=== PATIENT | female | born 1970 | race Caucasian/White ===

== ENCOUNTER 2018-02-26 06:42 | Day surgery (SDC) | payer OTHER, SELFPAY ==
[2018-02-25 17:02] VITALS: BMI 20.4
[2018-02-26] VITALS (7 sets, daily range): BP systolic 92–100; BP diastolic 62–65; PULSE 63–75; RESP 12–20; TEMP 36.7–36.9; O2SAT 97–100; BMI 20.4
[2018-02-26] MEDS: LACTATED RINGERS 1,000 ML 42 ML IV ×2 (07:11→09:28)
--- NOTE | 2018-02-26 07:14 | PM.PREOP ---
Pre-operative Note Interval Note Pre-op Check: Yes History & Physical Reviewed by Physician and Yes Exam Performed Changes: No
[2018-02-26] MEDS: CEFAZOLIN 2 GM/100 ML FROZ.PIGGY IV (08:00)
--- NOTE | 2018-02-26 08:27 | SUR.OPER ---
Supine on padded OR bed, head on pillow, arms secured on padded arm boards at <90 degrees abduction, legs uncrossed, safety belt at thigh, tape over blanket over right lower leg, left hip bump
--- NOTE | 2018-02-26 08:52 | PM.PROC.1 ---
Procedures Date/Time Date of procedure: 02/26/18 Time of procedure: 07:45 General Procedure description: Ultrasound guided popliteal sciatic nerve block and adductor canal saphenous nerve block for post op pain control after left foot surgery by Dr. Ng. Risk and benefits of procedure discussed with patient. ASA monitoring applied to patient. Oxygen given via nasal cannula. 2 mg Versed and 50 mcg fentanyl given for procedural sedation (meds checked out by [facility] PACU). Skin site was prepped with chlorhexidine and allowed to fully dry. Sterile gloves, mask, hat and probe cover were used to maintain sterility. 2% lidocaine and 30ga needle was used to make a small skin wheal at needle insertion site. Under ultrasound guidance, a 21ga 100mm Pajunk needle was directed near the division of the sciatic nerve into tibial and peroneal nerve in the popliteal fossa (lateral approach). Patient reported no parasthesias. After negative aspiration, 20 mL 0.5% ropivicaine and 10mg dexamethasone were injected around sciatic nerve. In similar fashion, a second injection was performed at the level of mid, medial thigh under ultrasound. Needle tip was directed into adductor canal near femoral artery. After negative aspiration, 10mL 0.5% ropivicaine was injected. Patient tolerated procedure well. Sciatic nerve US picture above, saphenous nerve US picture below
--- NOTE | 2018-02-26 11:15 | SUR.PHASEI ---
1106 aroused spontaneously, denies pain/nausea. States that she doesn't like the 'fan' of the [employer] because of the noise. Manan varam. 1117 Report given.
--- NOTE | 2018-02-26 11:19 | P.OP_ITS ---
Operative Date/Time/Diagnoses Date of procedure: 02/26/18 Time of procedure: 08:00 Pre-op diagnosis: left hallux valgus ICD 10 M20.12 Left metatarsus primus varus Post-op diagnosis: same Procedure & Clinicians Procedure: 1. Bunionectomy, Lapidus with TMT joint fusion, left CPT code 38018 2. Distal soft tissue realignment left great toe, modified Mccauley procedure 3. Fluoroscopic examination a lower extremity, intraoperative cpt code 74052-02 Same procedure as scheduled: Yes Indications: The patient is a 48-year-old female with a history of a left painful bunion. The patient has a history of a bunion surgery approximately 8 years ago which appears to be in a distal procedure with medial eminence resection. Patient has had consistent pain since that time having difficulty exercising, and wearing shoes and would like to proceed with surgery. R The risks and benefits of the procedure have been discussed with the patient even opportunity to ask questions. The risks of surgery include but are not limited to infection, malunion, nonunion, persistence of pain, damage to nerves and blood vessels, posttraumatic arthritis, DVT, PE, cardiopulmonary complications and . The patient expressed a thorough understanding of the risks and benefits of surgery and has elected to proceed. Consent was signed in the office. Patient has a left hallux valgus deformity elevated HVA an MIGUEL she also has a physical examination consistent with 1st tarsometatarsal hypermobility. Given her hypermobility and failed prior procedure she was indicated for revision bunion surgery with a tarsal metatarsal fusion and distal soft tissue procedure. Patient understands the period of protected weight-bearing will be acquired approximately 6-8 weeks of nonweightbearing with the splint and cast and boot treatment. She understands that swelling can persist for up to a year after surgery. Surgeon: Connie Ng Click Yes if Unassisted: Yes Anesthesia Type: General and Peripheral nerve block Operative Notes Findings: Left foot hallux valgus deformity with metatarsus primus varus. Hypermobile 1st TMT joint was encountered on dorsal dissection. This was fixed with 2 cross 4 0 cannulated lag screws from the Arthrex set supplementary 1st 2nd metatarsal solid 3 5 positional screw. Allogeneic bone was used to help facilitate the fusion. The distal 1st webspace incision was made for a lateral release the adductor tendon was released off the proximal phalanx and the metatarsal sesamoid ligament was incised and the lateral capsule was fenestrated in several locations. Adductor tendon was relocated proximally using 2 (2-0 PDS sutures through the 1st metatarsal neck periosteum, adductor tendon, 2nd metatarsal neck periosteum. These were tied at the end of the case. This along with a revision of the medial eminence resection capsulorrhaphy made up the modified Mccauley distal soft tissue realignment. Post reduction fixation the MIGUEL angle had been closed down HVA was improved. No proximal phalanx osteotomy was felt to be indicated based on the correction. The sesamoids were reduced under the metatarsal head. Closure Type: primary Specimen(s): none sent Implants & Drains: Arthrex 4.0 cannulated lag screw x2 Arthritis 3.5 cortical solid screw x 1 Life Net fibers for allogenic bone graft Applied: other Estimated Blood Loss (mL): 0 Blood products transfused: none Tourniquet time (min): 115 Procedure in detail: Patient was seen in the preoperative area. Site and side of surgery were marked. Patient's informed consent was confirmed. The patient had a peripheral block placed for postoperative pain control. This was completed by the anesthesia team. The patient was then brought back to the operating room by the anesthesia team. The patient was positioned supine on the operative table. General anesthesia was administered. All bony prominences were well padded. A well-padded thigh tourniquet was placed. The left lower extremity was prepped and draped in the standard sterile fashion. A formal time- out procedure was performed confirming the patient's side and site of surgery and administration of preoperative antibiotics within 30 min of incision. All were in agreement. An Esmarch bandage was utilized to exsanguinate the lower extremity and the tourniquet was raised to 250 mm of mercury and stayed there for approximately 115 min. Left lower extremity was examined. There was no apparent calf contracture. Attention was then turned to the hallux. The distal 1st webspace incision was made. This was approximately 3 cm. Dissection was carried through the skin and subcutaneous tissue and into the deep tissue to the adductor tendon. The adductor tendon was visualized and sharply dissected from the lateral sesamoid and from the base of the proximal phalanx. Was retracted proximal in the wound and tagged with a 4 0 Vicryl suture. Metatarsal sesamoid joint was then freed up. The lateral capsule was then perforated and stretch. Once satisfied with the correction to 2 2-0 PDS sutures were placed from the mid 1st metatarsal periosteum through the adductor into the 2nd metatarsal periosteum and clamped for timing at the end of the case. Attention was then turned medially. Medial incision was made along the 1st metatarsal head extending proximal. This was taken through the skin and subcutaneous tissue to the medial capsule. Care was taken to protect the dorsomedial nerve. Capsule was opened longitudinally. The metatarsal phalangeal joint was inspected cartilage is intact. There had been a previous medial eminence resection. In order to avoid over resection a power rasp was used just to shave down the residual lateral bump. A small ellipse of redundant capsule was excised. And the releases were checked to make sure that the sesamoids could be reduced under the metatarsal head. Next attention was turned to the 1st tarsometatarsal fusion. Standard dorsal incision at the level of the TMT joint was made after marking using fluoroscopy. This was taken down through the skin and subcutaneous tissue. EHL was protected and retracted laterally protecting the neurovascular bundle. And exposing the tarsometatarsal joint. This was found to be excessively hyper mobile on examination. The joint capsule was then opened. An osteotome was used to prepare the joint and take off the cartilage. Next a small amount of the plantar lateral aspect of the medial cuneiform was also planed down using the osteotome and then the power rasp. The joint was then thoroughly irrigated. Two drill was then used to create a good bleeding surface in the subchondral bone. An osteotome was used to fish scale this area. The demineralized cortical fibers allograft was then rehydrated in saline and placed into the fusion site. First metatarsal was then de rotated Nima is some was utilized to help reduce the MIGUEL and reduce the joint. This was pinned with crossed K-wires. Next a distal to proximal solid 3 5 screw was planned. Bur was used to recess the dorsal cortex of the 1st metatarsal. And the screw trajectory was drilled in lag fashion. A solid screw was initially placed in this location but on final tightening was noted to a malreduce the joint. This was then removed K-wires removed and the joint was reduced and once again cross pinned. Next a additional K-wire from the cannulated screw set was placed from distal to proximal this was overdrilled and countersunk and a 4 0 partially- threaded lag screw was placed in a cannulated fashion. The reduction was noted to hold therefore a similar proximal to distal at cannulated lag screw was also placed in the same fashion. This obtained excellent alignment and fixation. For supplemental fixation and to help hold the MIGUEL reduction a position solid 3 5 screw was placed from the 1st metatarsal to the 2nd metatarsal base. Once this was completed and intraoperative fluoroscopy confirmed adequate hardware placement and joint alignment attention was then returned to the distal soft tissue realignment. Two for a 4 gauze sponges were placed in the 1st webspace to correct the 1st toe alignment and 2-0 PDS suture was utilized to advance and tighten the medial capsule reducing the sesamoids. Next the 2 sutures at the lateral lease, retired from the 1st metatarsal periosteum through the adductor to the 2nd metatarsal periosteum. Final fluoroscopic images were obtained confirming alignment correction of the MIGUEL and reduction of the sesamoids. The tourniquet was released closure was completed with 2 0 PDS, 4 0 Monocryl, 4 O nylon suture. Sterile bulky dressing was placed with Xeroform, gauze, Webril, a bunion dressing and posterior splint. All counts were correct. There were no immediate complications from this procedure. Complications: none Condition: stable Disposition: PACU Plan for aftercare: Patient will be nonweightbearing on the left lower extremity. She will elevate over the next 2 weeks above heart level. She will use 325 mg of aspirin starting on postoperative day 1 for DVT prophylaxis. The patient had a peripheral block placed by the anesthesia team for postoperative pain control. Anticipate approximately 6 weeks of nonweightbearing.
== END 2018-02-26 12:15 | disposition home or self-care (01) ==
PROVIDERS: PCP Family Medicine; Visit Provider Orthopaedic Surgery Foot and Ankle Surgery
PROC: 0QBP0ZZ Excision of Left Metatarsal, Open Approach (ICD-10-PCS; CPT 28292; principal; 2018-02-26 07:45)
DX: M20.12 Hallux valgus (acquired), left foot (principal); G89.18 Other acute postprocedural pain
CPT/HCPCS: 28297; 64450; J0690; J1100; J2250; J2405; J2704; J2795; J3010

== ENCOUNTER → 2018-06-05 16:06 | Outpatient (CLI) | payer OTHER, SELFPAY ==
--- NOTE | 2018-06-05 | DI.MG.S_ITS ---
BILATERAL DIGITAL SCREENING MAMMOGRAM 3D/2D WITH CAD: 06/05/2018 CLINICAL: Routine screening. Comparison is made to exams dated: 04/25/2017 stereotactic biopsy - [facility], 04/16/2017 mammogram, and 03/15/2017 mammogram - [facility]. The tissue of both breasts is extremely dense, which lowers the sensitivity of mammography. Current study was also evaluated with a Computer Aided Detection (CAD) system. There are benign diffuse calcifications in both breasts. No significant masses, calcifications, or other findings are seen in either breast. There has been no significant interval change. IMPRESSION: There is no mammographic evidence of malignancy. A 1 year screening mammogram is recommended. This exam was interpreted at Station ID: [id number]. NOTE: For mammograms, a report in lay terms will be sent to the patient. Approximately 15% of breast malignancies will not be visualized mammographically. In the management of a palpable breast mass, a negative mammogram must not discourage biopsy of a clinically suspicious lesion. Electronically Signed By: Isidoro hartley/margarita:06/10/2018 12:20:38 letter sent: Normal Exam ACR BI-RADS Category 2: Benign Finding(s) 3342F
== END ==
PROVIDERS: PCP Family Medicine; Visit Provider Family Medicine
DX: Z12.31 Encounter for screening mammogram for malignant neoplasm of breast (principal)
CPT/HCPCS: 77063; 77067

== ENCOUNTER 2018-11-15 09:04 | Day surgery (SDC) | payer OTHER, SELFPAY ==
[2018-11-05 15:17] VITALS: BMI 20.2
[2018-11-15] VITALS (13 sets, daily range): BP systolic 91–110; BP diastolic 56–71; PULSE 70–90; RESP 12–22; TEMP 36.6–37.2; O2SAT 96–100; BMI 20.2
[2018-11-15] MEDS: LACTATED RINGERS 1,000 ML 84 ML IV ×2 (09:04→12:54)
[2018-11-15] MEDS: LACTATED RINGERS 1,000 ML 42 ML IV (09:47)
--- NOTE | 2018-11-15 10:08 | PM.HP.1 ---
History of Present Illness Date Patient Seen: 11/15/18 Time Patient Seen: 10:08 Chief complaint: [id number] RIGHT OPEN HERNIA REPAIR W/MESH Narrative: Patient seen and examined Unchanged since recent clinic note Plan for anterior abdominal wall hernia repair Patient History Medical History Insomnia (Chronic) Benign nevus (Acute) Bilateral bunions (Acute) Bunion, left (Acute) Dermatofibroma (Acute) Foot pain, left (Acute) Hallux valgus (acquired), left foot (Acute) Headache, migraine (Acute) Metatarsus primus varus of left foot (Acute) Telangiectasia (Acute) Surgical History (Updated 11/05/18 @ 15:24 by Capri Bass RN) Hx of rhinoplasty (Acute) H/O foot surgery (Acute ~2009) History of bunionectomy (Acute) Status post delivery Social History marital status: number of children: 2 household members: spouse and children lives independently: Yes caregiver/support person: No housing: house occupational status: employed Smoking Status: Never smoker second hand exposure: No alcohol intake: current substance use type: does not use Family & Social History Social History: household members spouse,children lives independently Yes caregiver/support person No Tobacco & Substance use: Smoking Status Never smoker alcohol intake current alcohol intake frequency 0-2 drinks per day Substance Use Type does not use Meds Home Medications Medication Instructions Recorded Confirmed Type ascorbic acid (vitamin C) [Vitamin 250 mg PO DAILY #0 01/01/13 11/15/18 History C] multivitamin 1 cap PO DAILY 11/12/18 11/15/18 History naproxen [Naprosyn] 500 mg PO QMONTH 11/12/18 11/15/18 History zolpidem 5 mg tablet 5 mg PO HS #30 tab 11/12/18 Rx Allergies Allergy/AdvReac Type Severity Reaction Status Date / Time No Known Allergies Allergy Uncoded 11/15/18 09:43 Exam Vital Signs (past 8 hours): - 11/15/18 09:18 Temperature 98.1 F Pulse Rate 79 Respiratory Rate 15 Blood Pressure 105/71 Pulse Oximetry 100 Oxygen Delivery Method Room Air
[2018-11-15] MEDS: CEFAZOLIN 2 GM/100 ML FROZ.PIGGY IV (10:51)
--- NOTE | 2018-11-15 11:24 | SUR.OPER ---
Supine on padded OR bed, head on pillow, arms secured on padded arm boards at <90 degrees abduction, legs uncrossed, safety belt at thigh, tape over blanket over lower legs.
[2018-11-15] MEDS: VANCOMYCIN 1,000 MG VIAL 1000 MG TOP (11:33)
[2018-11-15] MEDS: BUPIVACAINE 0.25% W/ EPI 30 ML VIAL 60 ML INJ (11:33)
--- NOTE | 2018-11-15 14:40 | PM.OP.1 ---
Operative Date/Time/Diagnoses Date of procedure: 11/15/18 Time of procedure: 14:40 Pre-op diagnosis: R anterior abdominal wall hernia Post-op diagnosis: other (Incisional hernia after Pfannenstiel incision from C section ) Procedure & Clinicians Procedure: Open incisional hernia repair -with mesh intralay (placed deep to internal oblique and anterior rectus sheath and superficial to tranversalis and rectus abdominous muscle) Same procedure as scheduled: Yes Surgeon: Marcio Zacarias Click Yes if Unassisted: Yes Anesthesia Type: General Operative Notes Findings: 5x2.5cm incisional hernia at R lateral aspect of Pfannenstiel incision Closure Type: primary Specimen(s): none sent Prosthetic devices, grafts, tissues, transplants, or devices: Mesh: Vitamesh blue lightweight PP macroporus (size inserted into pt 12.5x 7cm) Ref:[id number] Lot: [id number] Estimated Blood Loss (mL): 10 Blood products transfused: none Procedure in detail: 48-year-old woman with remote history of Pfannenstiel incision for presented to clinic with obvious bulge over right inferior abdominal wall. This was felt to initially constant to a inguinal hernia however on further examination it was somewhat higher than would be expected for this condition. It was somewhat in proximity to the patient's low transverse incision for Pfannenstiel and also was near the semilunar line potentially concerning for a spigelian hernia. The hernia was symptomatic with an obvious bulge with Valsalva. Due to the diagnostic uncertainty an open approach was selected. Patient was taken to the operating room she was prepped and draped in usual sterile fashion a time-out was completed -prior to intubation while standing erect the site of the bulge was clearly marked-and an incision marked as well. This was a small oblique incision approximately 4-5 cm superior to the inguinal ligament. Incision was carried through the skin and subcutaneous tissues without difficulty. The aponeurosis of the external oblique was identified and skeletonized from its overlying adventitial subcutaneous tissue. In the course of this the hernia defect was identified. The constituted a 5 x 2.5 cm area of absent fascia involving both the internal and external oblique aponeuroses at the lateral aspect of the rectus abdominis sheath. Carefully inspecting this area it appeared to be adjacent to the scar tissue of the anterior sheath of rectus abdominis where the Pfannenstiel incision had been made. The underlying transversalis muscles were attenuated in this region allowing bulging of the abdominal contents through the fascial defect. With meticulous dissection the fascial layers were clearly identified the scarred external and internal obliques were from each other into healthy tissue planes. Similarly the internal oblique was off the transversalis tissue as well as off the rectus abdominis muscles. This created a generous pocket deep to the internal oblique and anterior rectus fascia to accept a mesh intralay. The hernia defect fascial edges of both the internal oblique and external oblique aponeuroses were then trimmed back to healthy tissue. Mac reports with lightweight mesh was then selected -soaked in vancomycin least solution and then trimmed to dimensions of 12.5 cm x 7 cm matching the size of the tissue pocket that had been created. Trans fascial fixation sutures were then placed the medial and lateral portions of the mesh. The mesh was then placed into the pocket -unrolled. Utilizing a double-arm needle were then individually passed up through the anterior rectus sheath near the midline. This was then tied in place securing the medial edge of the mesh. In a similar way the trans fascial suture was placed lap out laterally superior to the anterior superior iliac spine. A superior and inferior transfascial suture was then placed utilizing suture tail -tacking the mesh to the overlying more superficial layers of the external oblique and internal oblique aponeuroses. All trans fascial sutures were 0 PDS. Of note the inferior layer of mesh was brought quite close to the inguinal canal, there was no hernia within the inguinal canal. The mesh was then inspected it laid nicely without unduly wrinkling. Then mesh pocket was then irrigated with vancomycin solution. Suction dry. Then patted dry with a lap pad. Tisseel was then used to further adhere the mesh to the underlying tissue and prevent wrinkling during closure. Next the aponeurosis of the internal oblique was carefully closed using 2 0 PDS in a simple continuous fashion. The aponeurosis of the external blink was also closed using 2 0 Vicryl in simple continuous fashion as well. Local anesthetic was infiltrated into the wound and skin. Demarcus's fascia was closed using interrupted 2 0 Vicryl sutures. Skin was closed using a 2 layer deep dermal interrupted Vicryl stitch pattern as well as a running subcuticular monofilament absorbable suture. Steri-Strips followed by dressing was applied Patient was extubated and brought to PACU without incident Complications: none Condition: stable Disposition: PACU Plan for aftercare: Home in pain well controlled
[2018-11-15] MEDS: fentaNYL 100 MCG/2 ML INJ 50 MCG IV (14:42)
[2018-11-15] MEDS: HYDROCODONE/ACET 5/325 TABLET 1 TAB PO ×2 (15:05→15:58)
--- NOTE | 2018-11-15 16:04 | SUR.PHASEII ---
Pt in stable condition, VSS. Drsg observed to be c/d/i. Reviewed dc instructions with pt and pt , no further questions or concerns voiced. bed in lowest position and call light given to pt. pt c/o 4/10 pain at surgical site. Medicated with po pain medication. pt awaiting return of from getting rx filled. pt denies any nausea.
== END 2018-11-15 17:00 | disposition home or self-care (01) ==
PROVIDERS: PCP Family Medicine; Visit Provider Surgery
PROC: (CPT 49560; principal; 2018-11-15 10:15)
DX: K43.2 Incisional hernia without obstruction or gangrene (principal)
CPT/HCPCS: 49560; 49568; C1781; J0330; J0690; J1100; J2250; J2405; J2704; J3010

== ENCOUNTER → 2019-03-24 08:58 | Outpatient (CLI) | payer OTHER, SELFPAY ==
--- NOTE | 2019-03-24 08:59 | DI.MG.S_ITS ---
BILATERAL DIGITAL DIAGNOSTIC MAMMOGRAM 3D/2D: 03/24/2019 CLINICAL: Breast pain. Comparison is made to exams dated: 06/05/2018 mammogram, 04/16/2017 mammogram, 03/15/2017 mammogram, 02/15/2016 mammogram, and 02/11/2015 mammogram - [facility]. The tissue of both breasts is extremely dense, which lowers the sensitivity of mammography. There is a square marker overlying the skin of the superior lateral right breast at the site of the patient's reported focal pain. There is extremely dense fibroglandular tissue underlying the marker. There is a subcentimeter oval focal asymmetry with obscured margins underlying the marker. No other new significant masses, calcifications, or other findings are seen in either breast. IMPRESSION: INCOMPLETE: NEEDS ADDITIONAL IMAGING EVALUATION Extremely dense fibroglandular tissue with a subcentimeter oval focal asymmetry with obscured margins is identified at the site of the patient's reported focal breast pain within the superior lateral right breast. Targeted diagnostic ultrasound recommended for further evaluation, which will be performed immediately following this exam. This exam was interpreted at Station ID: [id number]. NOTE: For mammograms, a report in lay terms will be sent to the patient. Approximately 15% of breast malignancies will not be visualized mammographically. In the management of a palpable breast mass, a negative mammogram must not discourage biopsy of a clinically suspicious lesion. Electronically Signed By: Adis Huynh M.D. ecl/:03/24/2019 10:27:56 copy to: Lashawn Lackey M.D., [facility] [place] [facility], ph: [phone], fax: [phone] ACR BI-RADS Category 0: Incomplete 3340F
--- NOTE | 2019-03-24 08:59 | DI.US.S_ITS ---
LIMITED ULTRASOUND OF RIGHT BREAST: 03/24/2019 CLINICAL: Focal right breast pain. Comparison is made to exams dated: 03/24/2019 mammogram, 06/05/2018 mammogram - [facility], 04/25/2017 specimen, 04/25/2017 stereotactic biopsy - [facility], and 04/16/2017 mammogram [facility]. Color flow and real-time ultrasound of the right breast upper outer quadrant were performed. Garcia scale images of the real-time examination were reviewed. There is a 0.4 x 0.4 x 0.4 cm oval circumscribed anechoic cyst with increased through transmission/posterior acoustic enhancement, and no vascularity on Doppler ultrasound located in the right breast at 10 o'clock 4 cm from the nipple. This appears to correlate with the finding seen on mammography. No other findings are identified by ultrasound within the superior lateral quadrant of the right breast. IMPRESSION: BENIGN 1) 0.4 cm benign-appearing simple cyst in the right breast at 10 o'clock 4 cm from the nipple at the site of patient's reported focal pain. No other findings are identified at the site of patient's reported focal superior lateral right breast pain by targeted ultrasound. Recommend clinical follow-up for further evaluation and management of the patient's reported symptoms. 2) There is no sonographic evidence of malignancy in the imaged areas of the superior lateral right breast. Return to annual screening mammography schedule is recommended. The patient is advised to monitor her breasts and to return sooner for re-evaluation should she feel anything grow or change. This exam was interpreted at Station ID: [id number]. Electronically Signed By: Adis Huynh M.D. ecl/:03/24/2019 10:32:25 copy to: Lashawn Lackey M.D., [place], ph: [phone], fax: [phone] letter sent: Clinical Evaluation Ultrasound BI-RADS: 2 Benign
== END ==
PROVIDERS: PCP Family Medicine; Visit Provider Registered Nurse
DX: R92.8 Other abnormal and inconclusive findings on diagnostic imaging of breast (principal); N64.4 Mastodynia; N60.01 Solitary cyst of right breast
CPT/HCPCS: 76642; 77066; G0279

== ENCOUNTER → 2020-04-07 17:41 | Outpatient (CLI) | payer OTHER, SELFPAY ==
--- NOTE | 2020-04-07 | DI.MG.S_ITS ---
BILATERAL DIGITAL SCREENING MAMMOGRAM 3D/2D WITH CAD: 04/07/2020 CLINICAL: Routine screening. Comparison is made to exams dated: 03/24/2019 mammogram, 06/05/2018 mammogram, 04/16/2017 mammogram, and 03/15/2017 mammogram - [facility]. The tissue of both breasts is extremely dense, which lowers the sensitivity of mammography. Current study was also evaluated with a Computer Aided Detection (CAD) system. There is a 1.1 cm round high density asymmetry with a microlobulated margin in the left breast posterior depth lateral region seen on the craniocaudal view only. No other significant masses, calcifications, or other findings are seen in either breast. IMPRESSION: INCOMPLETE: NEEDS ADDITIONAL IMAGING EVALUATION The 1.1 cm round high density asymmetry in the left breast is indeterminate. A diagnostic mammogram and ultrasound is recommended. This exam was interpreted at Station ID: [id number]. NOTE: For mammograms, a report in lay terms will be sent to the patient. Approximately 15% of breast malignancies will not be visualized mammographically. In the management of a palpable breast mass, a negative mammogram must not discourage biopsy of a clinically suspicious lesion. Electronically Signed By: Diana chambers/margarita:04/08/2020 09:11:15 copy to: Lashawn Lackey M.D., [employer], ph: [phone], fax: [phone] letter sent: Additional Imaging Needed ACR BI-RADS Category 0: Incomplete 3340F
== END ==
PROVIDERS: PCP Family Medicine; Referring Provider Family Medicine; Visit Provider Family Medicine
DX: Z12.31 Encounter for screening mammogram for malignant neoplasm of breast (principal)
CPT/HCPCS: 77063; 77067

== ENCOUNTER → 2020-04-30 15:03 | Outpatient (CLI) | payer OTHER, SELFPAY ==
--- NOTE | 2020-04-30 | DI.MG.S_ITS ---
UNILATERAL LEFT DIGITAL DIAGNOSTIC MAMMOGRAM 3D/2D WITH ADDITIONAL VIEWS: 04/30/2020 CLINICAL: Additional evaluation requested from prior study. Comparison is made to exams dated: 04/07/2020 mammogram, 03/24/2019 mammogram, 06/05/2018 mammogram, 03/15/2017 mammogram, and 02/15/2016 mammogram - [facility]. The tissue of left breast is extremely dense, which lowers the sensitivity of mammography. There is a 1.1 cm asymmetry in the left breast posterior depth lateral region seen on the craniocaudal view only. This is not seen in additional views. No other significant masses or calcifications are seen in the breast. IMPRESSION: INCOMPLETE: NEEDS ADDITIONAL IMAGING EVALUATION The 1.1 cm asymmetry in the left breast is not confirmed. A second look with targeted ultrasound is recommended and will immediately follow. This exam was interpreted at Station ID: [id number]. NOTE: For mammograms, a report in lay terms will be sent to the patient. Approximately 15% of breast malignancies will not be visualized mammographically. In the management of a palpable breast mass, a negative mammogram must not discourage biopsy of a clinically suspicious lesion. Electronically Signed By: Tc Bradford M.D. slc/:04/30/2020 16:01:31 copy to: Lashawn Lackey M.D., [facility] [employer], ph: [phone], fax: [phone] ACR BI-RADS Category 0: Incomplete 3340F
--- NOTE | 2020-04-30 15:05 | DI.US.S_ITS ---
LIMITED ULTRASOUND OF LEFT BREAST AND AXILLA: 04/30/2020 CLINICAL: Patient returns today to evaluate a focal asymmetry in the left breast. Comparison is made to exams dated: 04/30/2020 mammogram, 04/07/2020 mammogram, 03/24/2019 ultrasound, 03/24/2019 mammogram, 06/05/2018 mammogram - [facility], and 04/25/2017 specimen - [facility]. Color flow and real-time ultrasound of the left breast 3-5 o'clock, and axilla regions were performed. Garcia scale images of the real-time examination were reviewed. No significant abnormalities were seen sonographically in the left breast in the region of possible asymmetry. IMPRESSION: NEGATIVE There is no sonographic evidence of malignancy. A 1 year screening mammogram is recommended. Exam findings were conveyed to the patient. This exam was interpreted at Station ID: [id number]. Electronically Signed By: Tc Bradford M.D. slc/:04/30/2020 16:44:54 copy to: Lashawn Lackey M.D., [facility] [employer], ph: [phone], fax: [phone] letter sent: Normal Exam Ultrasound BI-RADS: 1 Negative
== END ==
PROVIDERS: PCP Family Medicine; Referring Provider Family Medicine; Visit Provider Family Medicine
DX: R92.8 Other abnormal and inconclusive findings on diagnostic imaging of breast (principal); N64.89 Other specified disorders of breast
CPT/HCPCS: 76642; 77065; G0279

== ENCOUNTER → 2020-06-02 14:40 | Outpatient (CLI) | payer OTHER, SELFPAY ==
[2020-06-02] MEDS: COVID-19 VACC, Ad26(JANSSEN)/PF 0.5 ML IM (14:46)
== END ==
PROVIDERS: PCP Family Medicine; Visit Provider Internal Medicine
DX: Z23 Encounter for immunization (principal)
CPT/HCPCS: 0031A; 91303

== ENCOUNTER → 2021-06-27 10:14 | Outpatient (CLI) | payer OTHER, SELFPAY ==
[2021-06-27 14:24] LABS: COVID19 -Nasal RAPID Negative (Negative)
== END ==
PROVIDERS: PCP Family Medicine; Visit Provider Surgery
DX: Z01.812 Encounter for preprocedural laboratory examination (principal); Z20.822 Contact with and (suspected) exposure to COVID-19
CPT/HCPCS: 87635; C9803

== ENCOUNTER 2021-06-28 09:45 | Day surgery (SDC) | payer OTHER, SELFPAY ==
[2021-06-28 10:03] VITALS: BMI 20.7
[2021-06-28] MEDS: LACTATED RINGERS 1,000 ML 42 ML IV (10:15)
--- NOTE | 2021-06-28 10:18 | PM.HP.1 ---
History of Present Illness History of Present Illness Date Patient Seen: 06/28/21 Time Patient Seen: 10:18 Chief complaint: SCREENING COLONOSCOPY Narrative: colon cancer screening. This is her first scope, no family history for colon cancer or symptoms. Patient History Medical History Benign nevus Bilateral bunions Bunion, left Dermatofibroma Foot pain, left Hallux valgus (acquired), left foot Headache, migraine Insomnia Metatarsus primus varus of left foot Telangiectasia Surgical History H/O foot surgery (~2009) History of bunionectomy Hx of rhinoplasty Status post delivery Family & Social History Social History: household members spouse,children lives independently Yes caregiver/support person No Tobacco & Substance use: Smoking Status Never smoker alcohol intake current alcohol intake frequency 0-2 drinks per day Substance Use Type does not use Meds Home Medications and Allergies Home Medications Medication Instructions Recorded Confirmed Type ascorbic acid (vitamin C) 250 mg 250 mg PO DAILY #0 01/01/13 06/28/21 History tablet (Vitamin C) multivitamin 1 cap PO DAILY 11/12/18 06/28/21 History naproxen 500 mg tablet (Naprosyn) 500 mg PO BID #180 tab 12/30/19 06/28/21 Rx zolpidem 5 mg tablet See Rx Instructions .ROUTE 03/22/21 06/28/21 Rx .COMPLEX #30 tab sodium,potassium,mag sulfates 17.5 See Rx Instructions PO .COMPLEX 05/26/21 06/28/21 Rx gram-3.13 gram-1.6 gram oral soln #354 ml (Suprep Bowel Prep Kit) Allergies Allergy/AdvReac Type Severity Reaction Status Date / Time No Known Drug Allergies Allergy Verified 06/28/21 10:14 Review of Systems Review of Systems ROS: Yes All systems reviewed with the patient and are negative except as otherwise documented Exam Const General: cooperative, healthy appearing and comfortable Nutritional Appearance: thin HENMT Head: normal to inspection, normocephalic and atraumatic Eyes Sclera: sclerae normal Neck Neck: normal visual inspection and trachea midline Chest Chest: normal inspection of the chest Resp Effort & Inspection: normal respiratory effort and able to speak in complete sentences Cardio Rate: regular rate Rhythm: regular rhythm GI Palpation: soft Skin General: elasticity normal and turgor normal Neuro General: patient alert, patient awake and patient oriented x3 Cognition: normal cognition Extrem General: normal to inspection and full ROM Psych Appearance: grossly normal Affect: normal affect Attitude: cooperative Judgment: judgment good Assessment & Plan Assessment & Plan narrative: screening for colon cancer colonoscopy with moderate sedation. COVID-19 COVID-19 status: Negative Time Spent With Patient Time with patient: less than 30 minutes Critical Care time: I spent a total of [] minutes of critical care time on this patient's care today; this time is exclusive of procedural time.
[2021-06-28] MEDS: fentaNYL 250 MCG/5 ML INJ IV (10:30)
[2021-06-28] MEDS: MIDAZOLAM 5 MG/5 ML VIAL IV (10:30)
--- NOTE | 2021-06-28 10:30 | PM.OP.COLON ---
Operative Date/Time/Diagnoses Date of procedure: 06/28/21 Time of procedure: 10:30 Pre-op diagnosis: colon cancer screen. Post-op diagnosis: same Procedure & Clinicians Study performed: colonoscopy w moderate sedation Same procedure as scheduled: Yes Indications: Colon cancer screening Surgeon: Brenna Flores Procedure Notes SCOAP/Timeout: Done Procedure in detail: Preop diagnosis: Colon cancer screening Postop diagnosis: Same Operative procedure: Colonoscopy with moderate sedation Surgeon: Shari Flores MD Anesthetic: 150 mcg fentanyl 5 mg Versed Findings: No polyps. No diverticulosis, no abnormalities. Procedure: Patient placed in lateral position. Rectal exam performed showing normal tone no masses. Colonoscope inserted into the rectum and advanced to the ileocecal valve with minimal difficulty. Insufflation extraction of the scope and the above findings. Retroflexion was performed in the rectum. Impression: Normal colonoscopy. No polyps, no diverticuli Plan: Repeat colonoscopy in 10 years unless otherwise indicated by change in family history or clinical condition Sedation minutes: 14 Specimen(s): none sent Complications: none Impression: No polyps, no diverticuli Post-procedure Recommendations: Colonoscopy in 10 years Plan for aftercare: Home Follow up: as needed Disposition: PACU
[2021-06-28 10:49] VITALS: BP 105/67; PULSE 61; RESP 12; TEMP 36.9; O2SAT 98
[2021-06-28 10:54] VITALS: BP 97/62; PULSE 60; RESP 14; O2SAT 98
[2021-06-28 10:59] VITALS: BP 103/66; PULSE 68; RESP 15; O2SAT 99
[2021-06-28 11:04] VITALS: BP 100/65; PULSE 61; RESP 13; O2SAT 100
[2021-06-28 11:10] VITALS: BP 98/61; PULSE 60; RESP 14; O2SAT 99
[2021-06-28 11:14] VITALS: BP 98/63; PULSE 61; RESP 14; O2SAT 98
--- NOTE | 2021-06-28 11:37 | SUR.PHASEII ---
discharge instructions reviewed with pt and she verbalized understanding.
== END 2021-06-28 11:46 | disposition home or self-care (01) ==
PROVIDERS: PCP Family Medicine; Referring Provider Surgery; Visit Provider Surgery
PROC: 0DJD8ZZ Inspection of Lower Intestinal Tract, Via Natural or Artificial Opening Endoscopic (ICD-10-PCS; CPT 45378; principal; 2021-06-28 10:45)
DX: Z12.11 Encounter for screening for malignant neoplasm of colon (principal)
CPT/HCPCS: 45378; 99152; J2250; J3010

== ENCOUNTER → 2021-09-21 14:52 | Outpatient (CLI) | payer OTHER, SELFPAY ==
--- NOTE | 2021-09-21 14:53 | DI.MG.S_ITS ---
BILATERAL DIGITAL SCREENING MAMMOGRAM 3D/2D WITH CAD: 09/21/2021 CLINICAL: Routine screening. Comparison is made to exams dated: 04/30/2020 ultrasound, 04/30/2020 mammogram, 04/07/2020 mammogram, 03/24/2019 mammogram, and 06/05/2018 mammogram - [facility]. The tissue of both breasts is extremely dense, which lowers the sensitivity of mammography. Current study was also evaluated with a Computer Aided Detection (CAD) system. No significant masses, calcifications, or other findings are seen in either breast. There has been no significant interval change. IMPRESSION: NEGATIVE There is no mammographic evidence of malignancy. A 1 year screening mammogram is recommended. Based on Tyrer-Cuzick model (a risk assessment model), the patient's lifetime risk is 57.9% and her 10 year risk is 18.8%. If a patient has an elevated risk, a more comprehensive evaluation should be considered and/or a referral to a genetic counselor. The [employer], [employer], and NCCN Guidelines advise the consideration of Breast MRI as an adjunct to screening mammography in patients whose Lifetime risk to develop breast cancer is 20% or higher. This exam was interpreted at Station ID: [id number]. NOTE: For mammograms, a report in lay terms will be sent to the patient. Approximately 15% of breast malignancies will not be visualized mammographically. In the management of a palpable breast mass, a negative mammogram must not discourage biopsy of a clinically suspicious lesion. Electronically Signed By: Daniel Evans acr/penrad:09/21/2021 16:09:37 copy to: Lashawn Lackey M.D., [facility] [employer] ph: [phone], fax: [phone] letter sent: Normal Exam ACR BI-RADS Category 1: Negative 3341E
== END ==
PROVIDERS: PCP Family Medicine; Referring Provider Family Medicine; Visit Provider Family Medicine
DX: Z12.31 Encounter for screening mammogram for malignant neoplasm of breast (principal)
CPT/HCPCS: 77063; 77067

== ENCOUNTER → 2022-02-14 11:33 | Outpatient (CLI) | payer OTHER, SELFPAY ==
[2022-02-14 12:50] LABS: Follicle Stimulating Hormone 29.8 mIU/mL; Luteinizing Hormone 33.7 mIU/mL
[2022-02-14 13:03] LABS: Thyroid Stimulating Hormone 1.68 uIU/mL (0.47-4.68)
[2022-02-14 13:06] LABS: Estradiol, Total 128.4 pg/mL
== END ==
PROVIDERS: PCP Family Medicine; Referring Provider Family Medicine; Visit Provider Family Medicine
DX: N92.6 Irregular menstruation, unspecified (principal)
CPT/HCPCS: 36415; 82670; 83001; 83002; 84443

== ENCOUNTER → 2022-06-28 08:01 | Outpatient (CLI) | payer OTHER, SELFPAY ==
[2022-06-28 09:25] LABS: Cholesterol 172 mg/dL (140-199); Glucose 81 mg/dL (70-100); HDL Cholesterol 88 mg/dL (40-60); LDL Cholesterol Calculated 76 mg/dL (<100); Triglycerides 41 mg/dL (35-150)
== END ==
PROVIDERS: PCP Family Medicine; Referring Provider Family Medicine; Visit Provider Family Medicine
DX: E78.5 Hyperlipidemia, unspecified (principal); R73.9 Hyperglycemia, unspecified
CPT/HCPCS: 36415; 80061; 82947

== ENCOUNTER → 2022-11-01 12:02 | Outpatient (CLI) | payer OTHER, SELFPAY ==
--- NOTE | 2022-11-01 | DI.MG.S_ITS ---
BILATERAL DIGITAL SCREENING MAMMOGRAM 3D/2D WITH CAD: 11/01/2022 CLINICAL: Routine screening. Comparison is made to exams dated: 09/21/2021 mammogram, 04/07/2020 mammogram, and 06/05/2018 mammogram - [facility]. Both breasts are extremely dense, which lowers the sensitivity of mammography (category d />75% glandular tissue). Current study was also evaluated with a Computer Aided Detection (CAD) system. There are benign post operative findings in the left breast. No significant masses, calcifications, or other findings are seen in either breast. There has been no significant interval change. IMPRESSION: BENIGN There is no mammographic evidence of malignancy. A 1 year screening mammogram is recommended. Based on Tyrer-Cuzick model (a risk assessment model), the patient's lifetime risk is 57.7% and her 10 year risk is 19.5%. If a patient has an elevated risk, a more comprehensive evaluation should be considered and/or a referral to a genetic counselor. The [employer], [employer], and NCCN Guidelines advise the consideration of Breast MRI as an adjunct to screening mammography in patients whose Lifetime risk to develop breast cancer is 20% or higher. This exam was interpreted at Station ID: [id number]. NOTE: For mammograms, a report in lay terms will be sent to the patient. Approximately 15% of breast malignancies will not be visualized mammographically. In the management of a palpable breast mass, a negative mammogram must not discourage biopsy of a clinically suspicious lesion. Electronically Signed By: Isidoro hartley/margarita:11/02/2022 13:51:24 copy to: Lashawn Lackey M.D., [employer], ph: [phone], fax: [phone] letter sent: Normal Exam ACR BI-RADS Category 2: Benign Finding(s) 3348F
== END ==
PROVIDERS: PCP Family Medicine; Referring Provider Family Medicine; Visit Provider Family Medicine
DX: Z12.31 Encounter for screening mammogram for malignant neoplasm of breast (principal)
CPT/HCPCS: 77063; 77067

== ENCOUNTER → 2022-11-28 14:17 | Outpatient (CLI) | payer OTHER, SELFPAY ==
--- NOTE | 2022-11-28 14:18 | DI.MRI.S_ITS ---
BREAST MRI OF BOTH BREASTS: 11/28/2022 CLINICAL: Follow up high risk. TECHNIQUE: The patient was placed prone in a dedicated breast imaging coil. Precontrast axial STIR and 3D FLASH without fat saturation sequences were obtained. Both before and after bolus injection of contrast, sequential 1-minute axial 3D FLASH with fat saturation sequences for 3 time points, with subtraction images and maximum intensity projections (MIP's) generated. Delayed sagittal FLASH images with fat saturation were also obtained. Computer-aided detection, including computer algorithm analysis of MRI image data for lesion detection and characterization, pharmacokinetic analysis, with further physician review for interpretation, was performed. COMPARISON: [facility], , MM SCREENING MAMMO BI, 09/21/2021, 15:07. [facility], , MM SCREENING MAMMO BI, 11/01/2022, 12:20. [facility], , BILATERAL BREAST W Image quality: Diagnostic. There is mild-moderate background parenchymal enhancement. Overall pattern appears stable compared to prior study. There is extremely dense fibroglandular breast tissue in the bilateral breast. Right breast: No suspicious mass, non-mass enhancement, or architectural distortion. No skin or nipple abnormalities. No axillary or internal mammary chain adenopathy. Left breast: Stable appearance of minimal post biopsy changes of the left breast. No other suspicious mass, non-mass enhancement, or architectural distortion. No skin or nipple abnormalities. No axillary or internal mammary chain adenopathy. Miscellaneous: Visualized portions of the upper abdomen and chest appear unremarkable. IMPRESSION: BENIGN 1. No MRI evidence for malignancy in the right breast. 2. No MRI evidence for malignancy in the left breast. Recommend continued annual screening mammography with consideration for continued adjunct annual screening breast MRI. COMMENT: The imaging literature indicates that a negative contrast breast MRI examination has a high sensitivity and a moderate specificity for detecting and excluding invasive carcinomas to a detection threshold of 3-5 mm; nonetheless, appropriate clinical and mammographic follow-up are recommended. MRI is not sensitive for detecting DCIS (ductal carcinoma in situ) and may not detect large invasive neoplasms that show only minimal enhancement such as mucinous carcinoma. If there are suspicious calcifications or clinically worrisome palpable masses, then biopsy should still be considered. Invasive neoplasms can be hidden by co-existent and benign enhancement caused by mastitis, hormone therapy effects, radiation therapy, , and recent biopsy or surgery. False positive examinations can occur in a number of circumstances, including breasts that have recently been subject to invasive procedures and those that contain atypical ductal hyperplasia, hormonally stimulated glandular tissue, fat necrosis, or radial scars. Future imaging is recommended as follows: 11/02/2023 screening mammogram. This exam was interpreted at Station ID: [id number]. Electronically Signed By: Isidoro Wilder M.D. aty/:11/28/2022 18:08:01 copy to: Lashawn Lackey M.D., [facility] [employer] [facility], ph: [phone], fax: [phone] [facility] BI-RADS Category 2: Benign Finding(s) 0107H
== END ==
PROVIDERS: PCP Family Medicine; Referring Provider Family Medicine; Visit Provider Family Medicine
DX: Z91.89 Other specified personal risk factors, not elsewhere classified (principal); Z12.39 Encounter for other screening for malignant neoplasm of breast
CPT/HCPCS: 77049

== ENCOUNTER → 2023-01-30 12:06 | Outpatient (CLI) | payer OTHER, SELFPAY ==
--- NOTE | 2023-01-30 12:08 | DI.RAD.S_ITS ---
PROCEDURE: XR ELBOW LT MIN 3V INDICATIONS: left elbow swelling and pain x 1 day TECHNIQUE: 3 views of the elbow were acquired. COMPARISON: None. FINDINGS: Bones: No fractures or dislocations. No suspicious bony lesions. Soft tissues: No visible joint effusion. Mild soft tissue thickening without foreign body or soft tissue gas No suspicious soft tissue calcifications. IMPRESSION: Soft tissue thickening without underlying osseous abnormality. Dictated by: Diana Redmond M.D. on 01/30/2023 at 13:32 Approved by: Diana Redmond M.D. on 01/30/2023 at 14:29
== END ==
PROVIDERS: PCP Family Medicine; Referring Provider Physician Assistant; Visit Provider Physician Assistant
DX: M70.32 Other bursitis of elbow, left elbow (principal)
CPT/HCPCS: 73080

== ENCOUNTER → 2023-11-09 11:20 | Outpatient (CLI) | payer OTHER, SELFPAY ==
--- NOTE | 2023-11-09 11:21 | DI.MG.S_ITS ---
BILATERAL DIGITAL SCREENING MAMMOGRAM 3D/2D WITH CAD: 11/09/2023 CLINICAL: Routine screening. Comparison is made to exams dated: 11/01/2022 mammogram, 09/21/2021 mammogram, and 04/07/2020 mammogram - [facility]. Both breasts are extremely dense, which lowers the sensitivity of mammography (category d />75% glandular tissue). Current study was also evaluated with a Computer Aided Detection (CAD) system. There are benign post operative findings in the left breast. No significant masses, calcifications, or other findings are seen in either breast. There has been no significant interval change. IMPRESSION: BENIGN There is no mammographic evidence of malignancy. A 1 year screening mammogram is recommended. Based on Tyrer-Cuzick model (a risk assessment model), the patient's lifetime risk is 57.6% and her 10 year risk is 20.4%. If a patient has an elevated risk, a more comprehensive evaluation should be considered and/or a referral to a genetic counselor. The [place] [employer], [employer], and NCCN Guidelines advise the consideration of Breast MRI as an adjunct to screening mammography in patients whose Lifetime risk to develop breast cancer is 20% or higher. This exam was interpreted at Station ID: [id number]. NOTE: For mammograms, a report in lay terms will be sent to the patient. Approximately 15% of breast malignancies will not be visualized mammographically. In the management of a palpable breast mass, a negative mammogram must not discourage biopsy of a clinically suspicious lesion. Electronically Signed By: Ed sewell/margarita:11/09/2023 12:55:13 copy to: Lashawn Lackey M.D., [employer], ph: [phone], fax: [phone] letter sent: Normal Exam ACR BI-RADS Category 2: Benign Finding(s) 334F
== END ==
LOC: MAMMO 11:20
PROVIDERS: PCP Family Medicine; Referring Provider Family Medicine; Visit Provider Family Medicine
DX: Z12.31 Encounter for screening mammogram for malignant neoplasm of breast (principal); R92.343 Mammographic extreme density, bilateral breasts
CPT/HCPCS: 77063; 77067

== ENCOUNTER → 2024-01-01 | Outpatient (CLI) | payer OTHER, SELFPAY ==
--- NOTE | 2024-01-01 16:01 | DI.MRI.S_ITS ---
BREAST MRI OF BOTH BREASTS: 01/01/2024 CLINICAL: High Risk Screening. TECHNIQUE: The patient was placed prone in a dedicated breast imaging coil. Precontrast axial STIR and 3D FLASH without fat saturation sequences were obtained. Both before and after bolus injection of contrast, sequential 1-minute axial 3D FLASH with fat saturation sequences for 3 time points, with subtraction images and maximum intensity projections (MIP's) generated. Delayed sagittal FLASH images with fat saturation were also obtained. Computer-aided detection, including computer algorithm analysis of MRI image data for lesion detection and characterization, pharmacokinetic analysis, with further physician review for interpretation, was performed. COMPARISON: [facility], MG, MM SCREENING MAMMO BI, 11/09/2023, 11:32. [facility], MR, MR BREAST BI WO/W CON, 11/28/2022, 14:26. FINDINGS: Image quality: Diagnostic There is mild background parenchymal enhancement. There is extremely dense fibroglandular tissue in the bilateral breast. Right breast: No suspicious mass, non-mass enhancement, or architectural distortion. No skin or nipple abnormalities. No axillary or internal mammary chain adenopathy. Left breast: No suspicious mass, non-mass enhancement, or architectural distortion. No skin or nipple abnormalities. No axillary or internal mammary chain adenopathy. Miscellaneous: Visualized portions of the upper abdomen and chest appear unremarkable. IMPRESSION: NEGATIVE 1. Right breast without MRI evidence for malignancy. 2. Left breast without MRI evidence for malignancy. Recommend continued annual screening mammography with consideration for continued adjunct annual screening breast MRI. COMMENT: The imaging literature indicates that a negative contrast breast MRI examination has a high sensitivity and a moderate specificity for detecting and excluding invasive carcinomas to a detection threshold of 3-5 mm; nonetheless, appropriate clinical and mammographic follow-up are recommended. MRI is not sensitive for detecting DCIS (ductal carcinoma in situ) and may not detect large invasive neoplasms that show only minimal enhancement such as mucinous carcinoma. If there are suspicious calcifications or clinically worrisome palpable masses, then biopsy should still be considered. Invasive neoplasms can be hidden by co-existent and benign enhancement caused by mastitis, hormone therapy effects, radiation therapy, , and recent biopsy or surgery. False positive examinations can occur in a number of circumstances, including breasts that have recently been subject to invasive procedures and those that contain atypical ductal hyperplasia, hormonally stimulated glandular tissue, fat necrosis, or radial scars. Future imaging is recommended as follows: 11/09/2024 screening mammogram. This exam was interpreted at Station ID: [id number]. Electronically Signed By: Isidoro Wilder M.D. aty/:01/02/2024 22:28:25 copy to: Lashawn Lackey M.D., [facility], ph: [phone], fax: [phone] ACR BI-RADS Category 1: Negative
== END ==
PROVIDERS: PCP Family Medicine; Referring Provider Family Medicine; Visit Provider Family Medicine
DX: R92.8 Other abnormal and inconclusive findings on diagnostic imaging of breast (principal)
CPT/HCPCS: 77049; A9579